=== PATIENT | male | born 1985 | race African-American/Black ===

== ENCOUNTER 2019-02-27 01:05 | Emergency (ER) | payer SELFPAY ==
[2019-02-27 01:50] VITALS: BP 118/84; PULSE 64; TEMP 98.1; BMI 21.5
[2019-02-27] MEDS ORDERED: IBUPROFEN 400 MG TABLET (FP) PO ONE ×2 (02:56→03:07)
--- NOTE | 2019-02-27 03:45 | PDOC ---
Attending Attestation - Resident Resident Name: Alo Schmidt - ED Attending Attestation I have performed the following: I have examined & evaluated the patient, The case was reviewed & discussed with the resident, I agree w/resident's findings & plan - HPI HPI: 02/27/19 03:44 Pt comes with hand injury and swollen palm/metacarpal area States that he was wrestling - Physicial Exam PE: 02/27/19 04:03 Agree with resident exam 02/27/19 04:05 Pt has no skin abrasions and pulses intact cap refill in the hand is normal Pt has no other hand/arm injuries; only tenderness and swelling at the 4th and 5th metacarpals. - Medical Decision Making 02/27/19 04:03 Pt was placed in an ulnar gutter splint. He will follow with [facility] surg next week. Pt has NSAIDs and tylenol for analgesia
--- NOTE | 2019-02-27 03:55 | PDOC ---
History of Present Illness - General Chief Complaint: Injury Stated Complaint: HAND PAIN Time Seen by Provider: 02/27/19 01:06 History Source: Patient Exam Limitations: No Limitations - History of Present Illness Initial Comments: Shelly Buck is a 33 yo M w no sig pmh who presents to the [facility] er with right hand pain after he was wrestling with his nephew and heard a crack in his hand. He states that the hand is swollen and painful and he thinks he might have broken a bone. The patient is able to hold his phone with his left hand and says everything feels normal. He states he has decreased strength in his 4th finger and also somewhat decreased in his 5th finger. Denies fevers, or broken objects on hand. PCP: None PSH: None reported Social Hx: Recreationally drinks. Denies smoking or other substance usage Allergies: NKA, NKDA Past History - Past Medical History Allergies/Adverse Reactions: Allergies Allergy/AdvReac Type Severity Reaction Status Date / Time No Known Allergies Allergy Verified 02/27/19 01:50 COPD: No - Psycho Social/Smoking Cessation Hx Smoking History: Current every day smoker Have you smoked in the past 12 months: Yes Number of Cigarettes Smoked Daily: 16 Information on smoking cessation initiated: No Hx Alcohol Use: No Drug/Substance Use Hx: No Review of Systems - Review of Systems Able to Perform ROS?: Yes Comments:: CONSTITUTIONAL: Absent: fever, no chills, no fatigue EYES: Absent: visual changes ENT: Absent: ear pain, no sore throat CARDIOVASCULAR: Absent: chest pain, no palpitations RESPIRATORY: Absent: cough, no SOB GI: Absent: abdominal pain, no nausea, no vomiting, no constipation, no diarrhea GENITOURINARY: Absent: dysuria, no frequency, no hematuria MUSKULOSKELETAL: Present: Arhtralgia Absent: back pain, no myalgia SKIN: Absent: rash NEURO: Absent: headache *Physical Exam - Vital Signs Last Vital Signs Temp Pulse Resp BP Pulse Ox 98.1 F 64 18 118/84 98 02/27/19 01:10 02/27/19 01:10 02/27/19 01:10 02/27/19 01:10 02/27/19 01:10 - Physical Exam Comments: GENERAL: Well-appearing, well-nourished. No apparent distress. HEENT: Normocephalic, atraumatic. PERRL, EOM intact. CARDIOVASCULAR: Normal S1, S2. Regular rate and rhythm. PULMONARY: No evidence of respiratory distress. Lungs clear to auscultation bilaterally. No wheezing, rales or rhonchi. ABDOMEN: Soft, non-distended, non-tender. EXTREMITIES: Normal ROM in all extremities except right hand. No gross deformities other than right hand. RIGHT HAND: There is tenderness along the 4th metacarpal bone. Mild tenderness in the 5th metacarpal bone. The dorsal aspect of the right hand is swollen without discoloration. ROM of the hand is not painful for the patient. He has normal 5/ 5 sensation in the right hand compared to the left. SKIN: Warm, dry. No rash NEUROLOGICAL: No focal neurological deficits. Procedures - Splinting Splint Location: Right: Hand, Wrist, Forearm Pre-Proc Neuro Vasc Exam: normal Hand-Made Type: orthoglass Splint Type: Yes: Ulnar Post-Proc Neuro Vasc Exam: normal Vj Bandage: yes Sling: No Complications: No Post splint xray: No Good repositioning: Yes ED Treatment Course - RADIOLOGY Radiology Studies Ordered: Category Date Time Status HAND- RIGHT [RAD] Stat Radiology 02/27/19 02:56 Taken - Medications Given in the ED: ED Medications Discontinued Medications Generic Name Dose Route Start Last Admin Trade Name Shawnq PRN Reason Stop Dose Admin Ibuprofen 400 mg 02/27/19 02:56 02/27/19 03:09 Motrin - PO 02/27/19 02:57 400 mg ONCE ONE Administration Medical Decision Making - Medical Decision Making Shlely Buck is a 33 yo M w no sig pmh who presents to the [facility] er with right hand pain after he was wrestling with his nephew and heard a crack in his hand. He states that the hand is swollen and painful and he thinks he might have broken a bone. The patient is able to hold his phone with his left hand and says everything feels normal. He states he has decreased strength in his 4th finger and also somewhat decreased in his 5th finger. Denies fevers, or broken objects on hand. Vital Signs Temp Pulse Resp BP Pulse Ox 98.1 F 64 18 118/84 98 02/27/19 01:10 02/27/19 01:10 02/27/19 01:10 02/27/19 01:10 02/27/19 01:10 DDx IBNLT: metacarpal fx, boxer fx, CMC joint dislocation Plan: Ice, XR, splint, analgesia, Ortho FU XR: There is a 4th metacarpal shaft fracture which is not displaced or angulated. I do not see any dislocations Plan: Ulnar gutter splint, NSAID, ortho FU, return precautions Dispo home w ortho fu Discharge - Discharge Information Problems reviewed: Yes Clinical Impression/Diagnosis: Fracture of fourth metacarpal bone Qualifiers: Encounter type: initial encounter Fracture type: closed Metacarpal location: shaft Fracture alignment: nondisplaced Laterality: right Qualified Code(s): S62.354A - Nondisplaced fracture of shaft of fourth metacarpal bone, right hand , initial encounter for closed fracture Condition: Improved Disposition: HOME - Admission No - Follow up/Referral Referrals: Jose Cruz Mack DO [Staff Physician] - Shaun Sahni DO [Staff Physician] - - Patient Discharge Instructions Patient Printed Discharge Instructions: DI for Boxer's Fracture, Hand Fracture Additional Instructions: You came into the ER with hand pain. We did an x-ray which showed you broke your 4th metacarpal bone. We placed a splint on your hand. You must follow up with the orthopedist we are referring you to in 7 days from now. Take motrin/ibuprofen/advil as needed for pain control. Come back to the ER immediately if your pain worsens, your hand is in pain or you have any other new or worsening concerns. If your hand gets red, swollen, or you think there is any chance of it being infected come back to the ER immediately. Thank you for coming to the [facility] ER. We hope you feel better soon! Print Language: CHILEAN - Post Discharge Activity Work/Back to School Note: Back to Work
== END 2019-02-27 04:03 | disposition home or self-care (01) ==
LOC: JER 01:05
PROC: 2W3CX1Z Immobilization of Right Lower Arm using Splint (ICD-10-PCS; principal; 2019-02-27)
DX: S62.354A Nondisplaced fracture of shaft of fourth metacarpal bone, right hand, initial encounter for closed fracture (principal); X50.9XXA Other and unspecified overexertion or strenuous movements or postures, initial encounter; Y93.72 Activity, wrestling; Y92.038 Other place in apartment as the place of occurrence of the external cause; Y99.8 Other external cause status; F17.210 Nicotine dependence, cigarettes, uncomplicated
CPT/HCPCS: 73130-TC-RT-FY; 99281-25

== ENCOUNTER 2020-02-23 06:08 | Day surgery (SDC) | payer OTHER ==
[2020-02-23 06:32] VITALS: BMI 20.9
[2020-02-23] MEDS ORDERED: EPINEPHrine 1:1,000 1 MG/1 ML - 30ML VIAL (INJECTION) ONE (07:05)
[2020-02-23] MEDS ORDERED: BUPIVACAINE HCL/PF 0.25% (2.5MG/ML) 10 ML VIAL ONE (07:05)
[2020-02-23] MEDS ORDERED: BUPIVACAINE LIPOSOME/PF (EXPAREL) 266 MG/20 ML VIAL ONE (07:20)
[2020-02-23] MEDS ORDERED: MIDAZOLAM HCL 2 MG/2 ML SINGLE DOSE VIAL ONE (07:20)
[2020-02-23] MEDS ORDERED: BUPIVACAINE HCL 100 ML ONE (07:21)
[2020-02-23] MEDS ORDERED: ONDANSETRON 4 MG/2 ML VIAL ONE (07:35)
[2020-02-23] MEDS ORDERED: DEXAMETHASONE SOD PHOSPHATE 4 MG/1 ML VIAL ONE (07:35)
[2020-02-23] MEDS ORDERED: SUCCINYLCHOLINE CHLORIDE 200 MG/10 ML SYRINGE ONE (07:35)
[2020-02-23] MEDS ORDERED: ceFAZolin SODIUM 1 GM VIAL ONE (07:35)
[2020-02-23] MEDS ORDERED: PROPOFOL 20 ML ONE (07:35)
[2020-02-23] MEDS ORDERED: BUPIVACAINE HCL 50 ML ONE (07:39)
[2020-02-23] MEDS ORDERED: TRANEXAMIC ACID 1000 MG/10 ML VIAL ONE (08:27)
[2020-02-23] MEDS ORDERED: oxyCODONE HCL 5 MG TABLET PO PRN (10:42)
[2020-02-23] MEDS ORDERED: ONDANSETRON 4 MG/2 ML VIAL IVPUSH PRN (10:42)
[2020-02-23 12:45] VITALS: TEMP 98
[2020-02-23 13:26] VITALS: BP 122/65; PULSE 65
== END 2020-02-23 14:00 | disposition home or self-care (01) ==
LOC: FASU 06:08
PROVIDERS: ATTEND Orthopaedic Surgery Sports Medicine
PROC: 0SBC4ZZ Excision of Right Knee Joint, Percutaneous Endoscopic Approach (ICD-10-PCS; 2020-02-23)
PROC: 0MRN47Z Replacement of Right Knee Bursa and Ligament with Autologous Tissue Substitute, Percutaneous Endoscopic Approach (ICD-10-PCS; principal; 2020-02-23 08:25)
DX: S83.511A Sprain of anterior cruciate ligament of right knee, initial encounter (principal); S83.281A Other tear of lateral meniscus, current injury, right knee, initial encounter; X58.XXXA Exposure to other specified factors, initial encounter; Y93.9 Activity, unspecified; Y92.9 Unspecified place or not applicable
CPT/HCPCS: 94760

== ENCOUNTER 2024-12-20 00:54 | Emergency (ER) | payer OTHER ==
[2024-12-20 01:08] VITALS: BP 127/81; PULSE 92; RESP 18; TEMP 98.1; BMI 21.9
[2024-12-20] MEDS ORDERED: KETOROLAC TROMETHAMINE 30 MG/1 ML VIAL ONE (01:50)
[2024-12-20] MEDS: KETOROLAC TROMETHAMINE 30 MG/1 ML VIAL IM ONE (01:50)
[2024-12-20] MEDS ORDERED: SULFAMETHOXAZOLE/TRIMETHOPRIM 800MG/160MG D.S. TABLET ONE (02:13)
[2024-12-20] MEDS: SULFAMETHOXAZOLE/TRIMETHOPRIM 800MG/160MG D.S. TABLET PO ONE (02:14)
== END 2024-12-20 03:18 | disposition home or self-care (01) ==
LOC: JER 00:54
PROC: 3E0233Z Introduction of Anti-inflammatory into Muscle, Percutaneous Approach (ICD-10-PCS; principal; 2024-12-20)
DX: N50.89 Other specified disorders of the male genital organs (principal); N50.82 Scrotal pain
CPT/HCPCS: 76870-TC; 96372; 99285-25